=== PATIENT | male | born 1950 | race Caucasian/White ===

== ENCOUNTER 2016-07-03 08:13 | Day surgery (SDC) | payer MEDICARE, BC ==
[~2016-07-03] VITALS: Ht 180.3 cm; Wt 86.2 kg
== END 2016-07-03 10:00 | disposition short-term general hospital (02) ==
LOC: SURGOP 08:13
PROC: 0DBK8ZZ Excision of Ascending Colon, Via Natural or Artificial Opening Endoscopic (ICD-10-PCS; principal; 2016-07-03)
PROC: 0DBH8ZX Excision of Cecum, Via Natural or Artificial Opening Endoscopic, Diagnostic (ICD-10-PCS; 2016-07-03)
DX: Z12.11 Encounter for screening for malignant neoplasm of colon (principal); D12.0 Benign neoplasm of cecum; D12.2 Benign neoplasm of ascending colon; Z86.010 Personal history of colon polyps; Z98.890 Other specified postprocedural states; Z79.899 Other long term (current) drug therapy; G47.30 Sleep apnea, unspecified; N40.0 Benign prostatic hyperplasia without lower urinary tract symptoms; Z87.19 Personal history of other diseases of the digestive system; Z80.0 Family history of malignant neoplasm of digestive organs

== ENCOUNTER 2016-07-15 17:06 | Emergency (ER) | payer MEDICARE, BC ==
[~2016-07-15] VITALS: Ht 180.3 cm; Wt 86.2 kg
== END 2016-07-15 17:30 | disposition short-term general hospital (02) ==
LOC: ER 17:06
DX: S01.03XA Puncture wound without foreign body of scalp, initial encounter (principal); W22.8XXA Striking against or struck by other objects, initial encounter; Y92.59 Other trade areas as the place of occurrence of the external cause

== ENCOUNTER 2017-01-03 20:13 | Emergency (ER) | payer MEDICARE, BC ==
[~2017-01-03] VITALS: Ht 180.3 cm; Wt 86.2 kg
[2017-01-03] MEDS ORDERED: FLONASE16 GM NASBOTH (20:56)
[2017-01-03] MEDS ORDERED: CIALIS5 MG PO (20:58)
[2017-01-03] MEDS ORDERED: CRESTOR5 MG PO (20:59)
[2017-01-03] MEDS ORDERED: ASPIRIN81 MG PO (20:59)
[2017-01-03] MEDS ORDERED: PAZEO2.5 ML EYEBOTH (21:00)
== END 2017-01-03 20:58 | disposition short-term general hospital (02) ==
LOC: ER 20:13
DX: S30.0XXA Contusion of lower back and pelvis, initial encounter (principal); Z79.82 Long term (current) use of aspirin; Z79.899 Other long term (current) drug therapy; W10.9XXA Fall (on) (from) unspecified stairs and steps, initial encounter